=== PATIENT | male | born 1940 ===

== ENCOUNTER 2017-06-07 19:57 | Emergency (ER) | payer SELFPAY ==
[2017-06-07 20:09] VITALS: BP 142/82; PULSE 83; RESP 18; O2SAT 99
[2017-06-07 20:24] VITALS: TEMP 97.5
--- NOTE | 2017-06-07 20:25 | ED PDOC ---
Arrival/HPI - General Chief Complaint: Medical Clearance Time Seen by Provider: 06/07/17 20:22 Historian: Patient, Family (Patient's was called on the phone) - History of Present Illness Narrative History of Present Illness (Text): 06/07/17 20:22 A 76 year old male brought into the emergency department by EMS after being found wandering in the streets. Patient reports he was running an errand but can 't remember what it was. Patient's was called over the phone and states patient has a history of dementia and Alzheimer's disease. Patient denies any complaints at this time. HPI and ROS are limited. Time/Duration: Prior to Arrival Context: Street Past Medical History - Provider Review Nursing Documentation Reviewed: Yes - Neurological Hx Alzheimer's Disease: (yes, per [facility] report) - Psychiatric Hx Substance Use: (unknown) Family/Social History - Physician Review Nursing Documentation Reviewed: Yes Family/Social History: No Known Family HX Smoking Status: unknonw Hx Alcohol Use: (unknown) Hx Substance Use: (unknown) Allergies/Home Meds Allergies/Adverse Reactions: Allergies Unobtainable Allergy (Verified 06/07/17 20:05) Home Medications: Home Meds Medication Instructions Recorded Confirmed Unobtainable 06/07/17 06/07/17 Review of Systems - Review of Systems Systems not reviewed;Unavailable: Dementia (/Alzheimer's disease) Physical Exam Vital Signs Reviewed: Yes Vital Signs Temp Pulse Resp BP Pulse Ox 06/07/17 20:23 97.5 F L 06/07/17 20:08 83 18 142/82 99 Temperature: Afebrile Blood Pressure: Normal Pulse: Regular Respiratory Rate: Normal Appearance: Positive for: Well-Appearing, Non-Toxic, Comfortable, Other ( pleasant) Pain Distress: None Mental Status: Positive for: Confused. No: Alert and Oriented X 3 (disoriented to time and situation) - Systems Exam Head: Present: Atraumatic, Normocephalic Pupils: Present: PERRL Extroacular Muscles: Present: EOMI Conjunctiva: Present: Normal Mouth: Present: Moist Mucous Membranes Neck: Present: Normal Range of Motion Respiratory/Chest: Present: Clear to Auscultation, Good Air Exchange. No: Respiratory Distress, Accessory Muscle Use Cardiovascular: Present: Regular Rate and Rhythm. No: Murmurs Abdomen: Present: Normal Bowel Sounds. No: Tenderness, Distention, Peritoneal Signs Back: Present: Normal Inspection Upper Extremity: Present: NORMAL PULSES. No: Cyanosis, Edema Lower Extremity: No: Edema Neurological: Present: Motor Func Grossly Intact, Normal Sensory Function, Gait Normal Skin: Present: Warm, Dry Psychiatric: No: Oriented x 3 (disoriented to time and situation), Agitated Medical Decision Making ED Course and Treatment: pt provided w cab voucher. cab called to transport pt home where is is. - Scribe Statement The provider has reviewed the documentation as recorded by the Scribe Dona Lucero training under Olya De León Provider Scribe Attestation: All medical record entries made by the Scribe were at my direction and personally dictated by me. I have reviewed the chart and agree that the record accurately reflects my personal performance of the history, physical exam, medical decision making, and the department course for this patient. I have also personally directed, reviewed, and agree with the discharge instructions and disposition. Disposition/Present on Arrival - Present on Arrival Any Indicators Present on Arrival: No History of DVT/PE: No History of Uncontrolled Diabetes: No Urinary Catheter: No History of Decub. Ulcer: No History Surgical Site Infection Following: None - Disposition Have Diagnosis and Disposition been Completed?: Yes Diagnosis: Dementia Disposition: HOME/ ROUTINE Disposition Time: 23:00 Condition: GOOD Forms: [employer] (Mosotho)
== END 2017-06-07 23:00 | disposition home or self-care (01) ==
LOC: MERGE 19:57 → ED 19:57
DX: F02.80 Dementia in other diseases classified elsewhere, unspecified severity, without behavioral disturbance, psychotic disturbance, mood disturbance, and anxiety (principal); G30.9 Alzheimer's disease, unspecified